=== PATIENT | female | born 1990 | race Caucasian/White ===

== ENCOUNTER 2017-12-08 16:02 | Emergency (ER) | payer OTHER ==
--- NOTE | 2017-12-08 16:34 | ER ---
Nurse's Notes [facility] Name: Jennifer Kim Age: 27 yrs Sex: Female : 1990 Arrival Date: 12/08/2017 Time: 16:07 Bed 25 Private MD: None, None Diagnosis: Insect bite (nonvenomous) of ankle-Left, Infected Presentation: 12/08 16:11 Presenting complaint: Patient states: Left ankle pain and swelling, [facility], was bitten by what the pt believes to be ants, spots turned to blister and have popped, Urgent care sent to ED for evaluation d/t being and possible cellulitis. Transition of care: patient was not received from another setting of care. Onset of symptoms was December 08, 2017. Risk Assessment: Do you want to hurt yourself or someone else? Patient reports no desire to harm self or others. Initial Sepsis Screen: Does the patient meet any 2 criteria? No. Patient's initial sepsis screen is negative. Does the patient have a suspected source of infection? No. Patient's initial sepsis screen is negative. Care prior to arrival: None. 16:11 Method Of Arrival: Ambulatory 16:11 Acuity: SHAYNE 5 Triage Assessment: 16:47 Bite description: bite sustained to left lateral ankle and anterior aspect of left mb3 ankle by a fire ant, animal information: vaccination(s) is not applicable. General: Appears in no apparent distress. comfortable. HOME CARE COMPANION: 16:12 LMP 11/12/2017 Historical: - Allergies: 16:13 No Known Allergies; sg - Home Meds: 16:13 None [Active]; sg - PMHx: 16:13 None; sg - Immunization history:: Adult Immunizations up to date, Last tetanus immunization: up to date. - Social history:: Smoking status: Patient/guardian denies using tobacco. - Ebola Screening: : Patient negative for fever greater than or equal to 101.5 degrees Fahrenheit, and additional compatible Ebola Virus Disease symptoms Patient denies exposure to infectious person Patient denies travel to an Ebola-affected area in the 21 days before illness onset No symptoms or risks identified at this time. Screenin:47 Abuse screen: Denies threats or abuse. Nutritional screening: No deficits noted. mb3 Tuberculosis screening: No symptoms or risk factors identified. Fall Risk None identified. Assessment: 16:45 General: Appears in no apparent distress. comfortable, Behavior is calm, cooperative, mb3 appropriate for age. Pain: Complains of pain in left lateral ankle and anterior aspect of left ankle. Cardiovascular: No deficits noted. Respiratory: No deficits noted. GI: No deficits noted. No signs and/or symptoms were reported involving the gastrointestinal system. Derm: Skin has blisters on blisters to left ankle and lower left leg from ant bites Skin is pink, warm \T\ dry. red, redness present on left lower leg and ankle. Derm: Vital Signs: 16:12 Weight 61.23 kg; Height 5 ft. 9 in. (175.26 cm); Pain 0/10; sg 16:15 BP 134 / 88; Pulse 97; Resp 18; Temp 98.1; Pulse Ox 100% on R/A; sg 16:12 Body Mass Index 19.94 (61.23 kg, 175.26 cm) sg ED Course: 16:07 Patient arrived in ED. sb2 16:08 None, None is Private Physician. sb2 16:10 Arm band placed on. sg 16:12 Triage completed. sg 16:17 Nadeem Elaine PA is PHCP. cp 16:17 Zack Monique MD is Attending Physician. cp 16:17 Drew Pozo, RN is Primary Nurse. mb3 16:41 Dressings: non-adherent dressing x 1 left foot. Wound care: to abrasion, located on em1 left foot was cleaned with dressed with Neosporin, Kerlix, Patient tolerated well. 16:47 Patient has correct armband on for positive identification. mb3 16:47 No provider procedures requiring assistance completed. Patient did not have IV access mb3 during this emergency room visit. Administered Medications: No medications were administered Outcome: 16:33 Discharge ordered by MD. cp 16:46 Discharged to home ambulatory. mb3 16:46 Condition: stable 16:46 Discharge instructions given to patient, Instructed on discharge instructions, follow up and referral plans. medication usage, Demonstrated understanding of instructions, follow-up care, medications, wound care, Prescriptions given X 2. 16:48 Patient left the ED. mb3 Signatures: Loi Yan RN RN Andrae Richards em1 Nadeem Elaine PA PA cp Nereyda Castillo sb2 Pozo, Drew, RN RN mb3
--- NOTE | 2017-12-08 16:34 | EDPHYS ---
Physician Documentation [facility] Name: Jennifer Kim Age: 27 yrs Sex: Female : 1990 Arrival Date: 12/08/2017 Time: 16:07 Bed 25 Private MD: None, None ED Physician Zack Monique HPI: 12/08 16:26 This 27 yrs old Female presents to ER via Ambulatory with complaints of cp Insect Bite - ANTS. 16:26 The patient presents with a bite, by an insect. cp 16:26 The complaints affect the left ankle. Onset: The symptoms/episode began/occurred last cp week. Context: The problem was sustained campte. Associated signs and symptoms: Pertinent negatives: calf tenderness, fever, numbness. Severity of symptoms: in the emergency department the symptoms are unchanged, despite home interventions. 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 - Social history:: Smoking status: Patient/guardian denies using tobacco. - Ebola Screening: : Patient negative for fever greater than or equal to 101.5 degrees Fahrenheit, and additional compatible Ebola Virus Disease symptoms Patient denies exposure to infectious person Patient denies travel to an Ebola-affected area in the 21 days before illness onset No symptoms or risks identified at this time. ROS: 16:27 Eyes: Negative for injury, pain, redness, and discharge. cp 16:27 Constitutional: Negative for body aches, chills, fever, poor PO intake. 16:27 ENT: Negative for drainage from ear(s), ear pain, difficulty swallowing, difficulty handling secretions. 16:27 Respiratory: Negative for cough, shortness of breath, wheezing. 16:27 Abdomen/GI: Negative for abdominal pain. 16:27 : Negative for urinary symptoms, vaginal bleeding, vaginal discharge. 16:27 Skin: Positive for of the anterior aspect left ankle, multiple ant bites. 16:27 All other systems are negative. Exam: 16:28 Head/Face: Normocephalic, atraumatic. cp 16:28 Constitutional: The patient appears in no acute distress, alert, awake, comfortable, non-toxic, well developed, well nourished. 16:28 Eyes: Periorbital structures: appear normal, Conjunctiva: normal, no exudate, no injection, Lids and lashes: appear normal, bilaterally. 16:28 ENT: External ear(s): are unremarkable, Nose: is normal, Mouth: Lips: moist, Oral mucosa: moist, Posterior pharynx: is normal, airway is patent, no erythema, no exudate. 16:28 Chest/axilla: Inspection: normal. 16:28 Cardiovascular: Rate: normal, Rhythm: regular, Pulses: Pulses are 2+ in left dorsalis pedis artery. Edema: ankle edema, that is mild, left ankle. 16:28 Respiratory: the patient does not display signs of respiratory distress, Respirations: normal, no use of accessory muscles, no retractions, no splinting, no tachypnea, Breath sounds: are clear throughout, no decreased breath sounds, no stridor, no wheezing. 16:28 Abdomen/GI: Exam negative for discomfort, distension, guarding, Inspection: abdomen appears normal. 16:28 Skin: noted several erythematous papules with colored drainage and crusting, mild surrounding erythema. Vital Signs: 16:12 Weight 61.23 kg; Height 5 ft. 9 in. (175.26 cm); Pain 0/10; sg 16:15 BP 134 / 88; Pulse 97; Resp 18; Temp 98.1; Pulse Ox 100% on R/A; sg 16:12 Body Mass Index 19.94 (61.23 kg, 175.26 cm) sg MDM: 16:17 Patient medically screened. cp 16:20 Differential diagnosis: cellulitis, abscess, lymphangitis. cp 16:32 Data reviewed: vital signs, nurses notes, and as a result, I will discharge patient. cp 16:32 Counseling: I had a detailed discussion with the patient and/or guardian regarding: the cp historical points, exam findings, and any diagnostic results supporting the discharge/admit diagnosis, the need for outpatient follow up, an OB/Gyne specialist, to return to the emergency department if symptoms worsen or persist or if there are any questions or concerns that arise at home. 12/08 16:26 Order name: Wound Care: please clean and dress wound with bactroban; Complete Time: cp 16:41 Administered Medications: No medications were administered Disposition: 18:20 Co-signature as Attending Physician, Zack Monique MD. rn Disposition: 12/08/17 16:33 Discharged to Home. Impression: Insect bite (nonvenomous) of ankle - Left, Infected. - Condition is Stable. - Discharge Instructions: Insect Bite, Medicines During . - Prescriptions for Bactroban 2 % Topical Ointment - Apply to affected area 1 application by TOPICAL route every 12 hours; 15 gram. Keflex 500 mg Oral Capsule - take 1 capsule by ORAL route every 8 hours for 10 days; 30 capsule. - Medication Reconciliation Form, Thank You Letter, Antibiotic Education, Prescription Opioid Use form. - Follow up: Private Physician; When: 48 Hours; Reason: Wound Recheck. - Problem is new. - Symptoms have improved. Signatures: Loi Yan RN RN Zack Hawk MD MD rn Nadeem Elaine PA PA cp Barnett, Mark RN RN mb3 Corrections: (The following items were deleted from the chart) 16:48 16:33 12/08/2017 16:33 Discharged to Home. Impression: Insect bite (nonvenomous) of mb3 ankle - Left, Infected. Condition is Stable. Forms are Medication Reconciliation Form, Thank You Letter, Antibiotic Education, Prescription Opioid Use. Follow up: Private Physician; When: 48 Hours; Reason: Wound Recheck. Problem is new. Symptoms have improved. cp
== END 2017-12-08 16:48 | disposition home or self-care (01) ==
LOC: ER 16:02
DX: S90.562A Insect bite (nonvenomous), left ankle, initial encounter (principal); W57.XXXA Bitten or stung by nonvenomous insect and other nonvenomous arthropods, initial encounter; Y93.9 Activity, unspecified; Y92.9 Unspecified place or not applicable; Y99.9 Unspecified external cause status
CPT/HCPCS: 99283

== ENCOUNTER 2018-08-15 02:09 | Inpatient (IN) | payer OTHER ==
[2018-08-15] MEDS ORDERED: METHYLERGONOVINE 0.2MG/ML AMP IM ONE (03:16)
[2018-08-15] MEDS ORDERED: LIDOCAINE 1% MPF 30 ML VIAL ONE (03:16)
[2018-08-15] MEDS ORDERED: Oxycodone HCl/Acetaminophen 1 TAB TAB PO PRN (03:29)
[2018-08-15] MEDS ORDERED: CARBOPROST TROME 250 MCG/ML IM PRN (03:29)
[2018-08-15] MEDS ORDERED: ACETAMINOPHEN 500 MG TAB PO PRN (03:29)
[2018-08-15] MEDS ORDERED: DOCUSATE NA/SENNA CONC 1 TAB PO PRN (03:29)
[2018-08-15] MEDS ORDERED: BISACODYL 10 MG RECTAL SUPP RECT PRN (03:29)
[2018-08-15] MEDS ORDERED: METHYLERGONOVINE 0.2 MG TAB PO PRN (03:29)
[2018-08-15] MEDS ORDERED: ONDANSETRON 4 MG (ODT) TAB PO PRN (03:29)
[2018-08-15] MEDS ORDERED: OXYTOCIN 10 UNIT/ML ML IV ONE (03:30)
[2018-08-15] MEDS ORDERED: Ringers Lactate 1,000 ML IV PRN (04:12)
[2018-08-15 04:19] LABS: RPR Titer ND
[2018-08-15 04:24] LABS: Absolute Lymphocytes (CBC) 1.6 K/uL (0.7-4.9); Absolute Monocytes 0.5 K/uL (0.1-1.3); Absolute Neutrophil 7.2 K/uL (1.8-8.0); Basophils % 0.2 % (0-1.3); Eosinophils % 0.3 % (0-4.4); Hematocrit 36.7 % (36.0-45.0); Lymphocytes % 17.4 % (15.3-44.8); MPV 9.5 fL (7.6-11.3); Monocytes % 5.2 % (3.3-12.3); RBC Red Blood Cell Count 3.91 M/uL (3.86-4.86)
[2018-08-15 04:29] LABS: Urine Appearance CLEAR; Urine Bilirubin NEGATIVE (NEG); Urine Blood TRACE (NEG); Urine Color YELLOW; Urine Glucose NEGATIVE (NEG); Urine Protein NEGATIVE (NEG); Urine Specific Gravity <=1.005 (1.005-1.030); Urine Urobilinogen 0.2 mg/dL (0.2-1.0)
[2018-08-15 04:31] LABS: Urine Microscopic Reflex ORDER UMIC
[2018-08-15] MEDS: IBUPROFEN 200 MG TAB PO PRN ×3 (04:36→19:45)
[2018-08-15] MEDS ORDERED: Ringers Lactate 1,000 ML IV SCH (05:00)
[2018-08-15 05:02] LABS: Urine Bacteria <20 /HPF (<20); Urine Culture Reflex Order NOT NEEDED; Urine RBC <5 /HPF (NONE SEEN)
[2018-08-15 07:01] VITALS: BMI 24.3
--- NOTE | 2018-08-15 21:02 | P.OBGYNHP ---
Certification for Inpatient Patient admitted to: Inpatient With expected LOS: <2 Midnights Patient will require the following post-hospital care: None Practitioner: I am a practitioner with admitting privileges, knowledge of patient current condition, hospital course, and medical plan of care. Services: Services provided to patient in accordance with Admission requirements found in Title 42 Section 412.3 of the Code of Federal Regulations Patient History Date of Service: 08/15/18 Reason for admission: LABOR History of Present Illness: Patient is a 28 y/o at 39 weeks and 3 days gestation who presented to labor and delivery in labor at 230AM. Patient began having contractions at home around 11PM and they worsened overnight. Patient denies leakage of fluid. No vaginal bleeding and reports good movements. She has been 2cm dilated. Today she presents and on nurse exam she is 4-5 cm dilated and 60% effaced. Nurse was instructed to admit the patient for labor management and to begin process for obtaining an epidural. 30 minutes late patient was found to be fully dilated with a strong urge to push. I was notified and presented to the hospital and at that point patient had already delivered. Patient had obtained care with me beginning at 9 weeks gestation. She has been compliant with visits. No complications. 1 hour glucose screen was elevated therefore 3 hour GTT was done and that was negative. See record for further details. Allergies No Known Allergies Allergy (Unverified 12/08/17 16:51) Home Medications: Lactobacillus Acidophilus [Probiotic] 1 tab PO DAILY 08/15/18 Pnv Cmb#21/Iron/Folic Acid [ Complete Caplet] 1 tab PO DAILY 08/15/18 - Past Medical/Surgical History Diabetic: No Past Medical History: Patient denies medical history Past Surgical History: Patient denies surgical history - Family History Family History: Reviewed- Non-Contributory - Social History Smoking Status: Never smoker Alcohol use: No CD- Drugs: No Caffeine use: No Place of Residence: Home Review of Systems 10-point ROS is otherwise unremarkable Physical Examination - Vital Signs Temperature: 99.5 F Blood Pressure: 130/65 Pulse: 85 Respirations: 18 - General General: Alert, Oriented x3, Moderate distress HEENT: Atraumatic Neck: Supple Respiratory: Normal air movement Cardiovascular: No edema Breasts: Normal configuration Gastrointestinal: Other (Gravid) Musculoskeletal: No clubbing Integumentary: No rashes Neurological: Normal gait, Normal speech - Female Pelvic External genitalia: Normal Vagina: [place], Moist Cervix: Dilation (fully ), Effacement (100%), station (0) Uterus: Gravid Adnexa: Unable to evaluate - Obstetrics Amniotic membrane: SROM Laboratory Data (last 24 hrs) 08/15/18 03:25: WBC 9.4, Hgb 12.5, Hct 36.7, Plt Count 220 Assessment and Plan - Plan 28 y/o at 39 weeks and 3 days gestation who presents in active labor. GBS negative. Labor progressed rapidly. Placenta not yet delivered and 1st degree laceration seen. Patient to be admitted for management of labor. Discharge Plan: Home Plan to discharge in: 48 Hours - Advance Directives Does patient have a Living Will: No Does patient have a Durable POA for Healthcare: No
--- NOTE | 2018-08-15 21:21 | P.OP ---
Date of Service: 08/15/18 Findings and Operative Technique Patient delivered a viable female on 08/15/18 at 03:05 AM. was delivered by the nurse. Once infant was delivered and I arrived cord blood was obtained. Placenta was delivered with gentle traction at 03:13. Placenta was examined and noted to be intact. Perineum was noted to have a midline first degree laceration which was repaired with a 2.0 vicryl in usual fashion. Patient and baby are both doing well. Weight was found to be 8 lb and 4 ounces. APGARS were 7 and 9. EBL was 200 cc. First stage of labor was 6 hours. Second stage of labor was 6 minutes. Pitocin was given IM since IV was displaced during delivery. Fundus was found to be firm. Routine care with be provided.
[2018-08-16 04:33] VITALS: TEMP 97.2
[2018-08-16 05:01] LABS: Absolute Lymphocytes (CBC) 2.6 K/uL (0.7-4.9); Absolute Monocytes 0.9 K/uL (0.1-1.3); Absolute Neutrophil 8.5 K/uL (1.8-8.0); Basophils % 0.2 % (0-1.3); Eosinophils % 0.6 % (0-4.4); Hematocrit 36.1 % (36.0-45.0); Lymphocytes % 21.7 % (15.3-44.8); MPV 9.2 fL (7.6-11.3); Monocytes % 7.3 % (3.3-12.3); RBC Red Blood Cell Count 3.82 M/uL (3.86-4.86)
[2018-08-16 07:08] VITALS: BP 107/67
[2018-08-16] MEDS: IBUPROFEN 200 MG TAB PO PRN (09:03)
[2018-08-17 02:04] LABS: RPR (Rapid Plasma Reagin) NON-REACT (NON-REACT)
[2018-08-20 04:06] LABS: HBsAG Nonreactive (Nonreactive)
== END 2018-08-16 10:25 | disposition home or self-care (01) | DRG 807 ==
LOC: L&D 02:09 → 2ND-WC 02:45
PROVIDERS: ADMIT Student in an Organized Health Care Education/Training Program; ATTEND Student in an Organized Health Care Education/Training Program
PROC: 10E0XZZ Delivery of Products of Conception, External Approach (ICD-10-PCS; principal; 2018-08-15)
PROC: 0HQ9XZZ Repair Perineum Skin, External Approach (ICD-10-PCS; 2018-08-15)
DX: O70.0 First degree perineal laceration during delivery (principal); Z37.0 Single live birth; Z3A.39 39 weeks gestation of pregnancy
CPT/HCPCS: 36415; 81003; 81015; 85025; 86592; 86850; 86900; 86901; 87340; J2210; J2590